=== PATIENT | female | born 1940 | race Caucasian/White ===

== ENCOUNTER → 2017-03-13 | Outpatient (CLI) | payer OTHER, MEDICARE | LOC: BHFA 09:30 | PROVIDERS: ATTEND Internal Medicine Interventional Cardiology | DX: Z01.818 Encounter for other preprocedural examination (principal); R07.9 Chest pain, unspecified | CPT/HCPCS: 78452; 93017; A9500; J2785 ==

== ENCOUNTER → 2018-03-29 | Outpatient (CLI) | payer OTHER, MEDICARE | LOC: BHFA 09:45 | PROVIDERS: ATTEND Internal Medicine Cardiovascular Disease | DX: I48.91 Unspecified atrial fibrillation (principal); I10 Essential (primary) hypertension ==